=== PATIENT | male | born 1990 | race Caucasian/White ===

== ENCOUNTER → 2023-02-09 11:37 | Outpatient (CLI) | payer OTHER, SELFPAY ==
--- NOTE | 2023-02-09 11:39 | DI.RAD.S_ITS ---
PROCEDURE: XR FOOT LT MIN 3V INDICATIONS: Left foot and ankle pain TECHNIQUE: 3 views of the foot were acquired. COMPARISON: None. FINDINGS: Bones: No fractures or dislocations. No suspicious bony lesions. Soft tissues: No tibiotalar joint effusion. Achilles tendon appears normal. IMPRESSION: Normal left foot radiographs Approved by: Jose Maria Shaffer M.D. on 02/09/2023 at 12:14
--- NOTE | 2023-02-09 11:39 | DI.RAD.S_ITS ---
PROCEDURE: XR ANKLE LT MIN 3V INDICATIONS: Left foot and ankle pain TECHNIQUE: 3 views of the ankle were acquired. COMPARISON: None. FINDINGS: Bones: No fractures or dislocations. Ankle mortise is normally aligned. No suspicious bony lesions. Curvilinear calcification associated with the dorsal navicular cortex on the lateral without significant soft tissue swelling Soft tissues: No tibiotalar joint effusion. Achilles tendon appears normal. IMPRESSION: Navicular curvilinear calcification on the lateral exam may reflect prior , partially healed, avulsion fracture. No soft tissue swelling. No evidence of acute fracture. Approved by: Jose Maria Shaffer M.D. on 02/09/2023 at 12:11
== END ==
PROVIDERS: Referring Provider Registered Nurse; Visit Provider Registered Nurse
DX: M25.572 Pain in left ankle and joints of left foot (principal)
CPT/HCPCS: 73610; 73630